=== PATIENT | male | born 1955 | race Caucasian/White ===

== ENCOUNTER 2025-04-18 07:30 | Day surgery (SDC) | payer BC, MEDICARE ==
[2025-04-18] MEDS: Lactated Ringers 1,000 ML IV SCH (08:11)
[2025-04-18] MEDS ORDERED: Propofol 200 MG/20 ML SDV ONE ×2 (09:06→09:29)
[2025-04-18] MEDS ORDERED: fentaNYL 100 MCG/2 ML SDV ONE (09:06)
== END 2025-04-18 10:44 | disposition home or self-care (01) ==
LOC: JP.SDS 07:30
PROVIDERS: ATTEND Surgery
DX: Z12.11 Encounter for screening for malignant neoplasm of colon (principal); Q43.8 Other specified congenital malformations of intestine; I10 Essential (primary) hypertension
CPT/HCPCS: 00812; 45378; J2704; J3010; J7120